=== PATIENT | male | born 1965 | race Caucasian/White ===

== ENCOUNTER → 2024-06-01 09:54 | Outpatient (REF) | payer OTHER, SELFPAY | LOC: HWRAD 09:54 | PROVIDERS: ATTENDING PHYSICIAN Surgery; FAMILY PHYSICIAN Family Medicine | DX: N40.1 Benign prostatic hyperplasia with lower urinary tract symptoms (principal) | CPT/HCPCS: 76770 ==

== ENCOUNTER → 2024-10-14 17:00 | Outpatient (REF) | payer OTHER, SELFPAY | LOC: DHSLP 17:00 | PROVIDERS: ATTENDING PHYSICIAN Internal Medicine Critical Care Medicine; FAMILY PHYSICIAN Family Medicine | DX: G47.19 Other hypersomnia (principal); R06.83 Snoring | CPT/HCPCS: 95800 ==